=== PATIENT | male | born 1945 | race Caucasian/White ===

== ENCOUNTER → 2020-03-29 | Outpatient (CLI) | payer OTHER ==
[~2020-03-29] MED LIST: AMLO-150 PO; ASPI81TA45 PO; ATOR40TA78 PO; BROM5DRO3 EACHEYE; CHOL10003 PO; HYDROCHLOROTH12.5 MG PO; LOSA50TA14 PO; METO25TA35 PO
[2020-03-29 12:47] LABS: BASOPHILS % (AUTO) 1 % (0-1); EOSINOPHILS % (AUTO) 2 % (1-7); LYMPHOCYTES % (AUTO) 23 % (22-44); MEAN CORPUSCULAR HEMOGLOBIN 30.5 pg (27.5-34.5); MEAN CORPUSCULAR HGB CONC 32.9 g/dL (33.2-36.2); MONOCYTES % (AUTO) 6 % (2-9); NEUTROPHILS % (AUTO) 68 % (42-75); PLATELET COUNT 159 x10^3/uL (130-400); RED BLOOD COUNT 4.86 x10^6/uL (4.38-5.82); RED CELL DISTRIBUTION WIDTH 14.2 % (9.4-14.8)
[2020-03-29 12:53] LABS: INTERNATIONAL NORMALIZED RATIO 1.05 (0.93-1.1); PROTHROMBIN TIME 10.8 Seconds (9.6-11.5)
[2020-03-29 12:59] LABS: ALBUMIN 3.9 g/dL (3.4-5.0); ANION GAP 6 mmol/L (5-15); CHLORIDE 111 mmol/L (98-107)
[2020-03-29 13:02] LABS: ALANINE AMINOTRANSFERASE 21 U/L (12-78); ALKALINE PHOSPHATASE 66 U/L (45-117); BILIRUBIN,TOTAL 1.1 mg/dL (0.2-1.0); TOTAL PROTEIN 7.7 g/dL (6.4-8.2)
[2020-03-29 13:05] LABS: MD NO
== END | disposition home or self-care (01) ==
LOC: STAR 11:12
PROVIDERS: ATTEND Orthopaedic Surgery
DX: Z01.812 Encounter for preprocedural laboratory examination (principal); Z20.828 Contact with and (suspected) exposure to other viral communicable diseases; M16.12 Unilateral primary osteoarthritis, left hip; R94.31 Abnormal electrocardiogram [ECG] [EKG]
CPT/HCPCS: 36415; 80053; 83036; 85025; 85610; 85730; 87081; 87635; 93005

== ENCOUNTER 2020-04-03 06:45 | Observation (INO) | payer OTHER ==
[~2020-04-03] VITALS: Ht 177.8 cm; Wt 73.3 kg
[~2020-04-03 06:45] MED LIST changes: +BISACODYL 10 MG SUPP PR PRN; +CEFAZOLIN PMX 2GM/50ML 50 ML IVPB SCH; +DIPHENHYDRAMINE 50 MG CAPSULE PO PRN; +EPINEPHRINE 1 MG/ML, 1ML ONE; +HYDROcodone/APAP 5/325 TABLET PO PRN; +KETOROLAC 60 MG/2 ML ONE; +MAGNESIUM HYDROXIDE 8%, 30ML UDC PO PRN; +ONDANSETRON 2MG/ML, 2ML IV PRN; +ONDANSETRON 4 MG TABLET PO PRN; +OXYcodone IR 5MG TABLET PO PRN; +ROPIvacaine/PF 0.5%, 20 ML ONE; +ROPIvacaine/PF 0.5%, 30 ML ONE; +SENNA/DOCUSATE TABLET PO PRN; +SODIUM CHLORIDE 0.9% 50 ML ONE; +TRANEXAMIC ACID 100 MG/ML, 10ML ONE; +VANCOMYCIN 1,000 MG ONE; +ZOLPIDEM 5MG TABLET PO PRN
[2020-04-03 07:25] VITALS: BP 166/87
[2020-04-03] MEDS ORDERED: CHLORHEXIDINE 15 ML UDC MM ONE (07:30)
[2020-04-03] MEDS ORDERED: GABAPENTIN 300 MG CAPSULE PO ONE (07:30)
[2020-04-03] MEDS ORDERED: ACETAMINOPHEN 500 MG TABLET PO ONE (07:30)
[2020-04-03] MEDS ORDERED: LACTATED RINGERS 1,000 ML IV SCH (07:30)
[2020-04-03] MEDS ORDERED: FENTANYL PF 100 MCG/2ML ONE (07:47)
[2020-04-03] MEDS ORDERED: MIDAZOLAM 1 MG/ML, 2ML ONE (07:47)
[2020-04-03] MEDS ORDERED: HYDROmorphone 1 MG/ML, 1ML INJ IVPush PRN (08:00)
[2020-04-03] MEDS ORDERED: FENTANYL PF 100 MCG/2ML IV PRN (08:00)
[2020-04-03] MEDS ORDERED: MEPERIDINE/PF 25MG/0.5ML IVPush PRN (08:00)
[2020-04-03] MEDS ORDERED: OXYcodone 5 MG/5 ML ORAL.SOL UDC PO PRN (08:00)
[2020-04-03] MEDS ORDERED: PROMETHAZINE 25 MG/ML, 1ML IVPush PRN (08:00)
[2020-04-03] MEDS ORDERED: HYDROcodone/APAP 7.5-325MG/15ML UDC PO PRN (08:00)
[2020-04-03] MEDS ORDERED: LIDOCAINE PF 2%, 5ML ONE (08:26)
[2020-04-03] MEDS ORDERED: SUCCINYLCHOLINE 20 MG/ML, 10ML ONE (08:26)
[2020-04-03] MEDS ORDERED: PROPOFOL 10 MG/ML, 20ML ONE (08:26)
[2020-04-03] MEDS ORDERED: ONDANSETRON 2MG/ML, 2ML ONE (08:26)
[2020-04-03] MEDS ORDERED: ROCURONIUM 10 MG/ML,10ML ONE (08:26)
[2020-04-03] MEDS ORDERED: EPHEDRINE 50 MG/ML, 1ML ONE (08:26)
[2020-04-03] MEDS ORDERED: DEXAMETHASONE 4 MG/ML, 1ML ONE (08:26)
[2020-04-03] MEDS ORDERED: HYDROcodone/APAP 7.5-325MG/15ML UDC ONE (10:07)
[2020-04-03] MEDS: AMLODIPINE 5 MG TABLET PO SCH (11:33)
[2020-04-03] MEDS: METOPROLOL TARTRATE 25 MG TAB PO SCH ×2 (11:33→21:27)
[2020-04-03] MEDS: DOCUSATE 100 MG CAPSULE PO SCH ×2 (11:33→21:26)
[2020-04-03] MEDS: LOSARTAN 50MG TABLET PO SCH ×2 (11:33→21:26)
[2020-04-03] MEDS: HYDROCHLOROTHIAZIDE 12.5 MG CAPSULE PO SCH (11:33)
[2020-04-03 13:53] VITALS: BP 129/74
[2020-04-03] MEDS: CEFAZOLIN PMX 2GM/50ML 50 ML IVPB SCH ×2 (14:31→23:41)
[2020-04-03] MEDS: NS + 20MEQ KCL 1,000 ML IV SCH (17:06)
[2020-04-03] MEDS: ASPIRIN 81 MG TABLET EC PO SCH (17:06)
[2020-04-03 20:37] VITALS: BP 128/69
[2020-04-03] MEDS ORDERED: ATORVASTATIN 40 MG TABLET PO SCH (21:00)
[2020-04-03] MEDS: ACETAMINOPHEN 650 MG/20.3 ML UDC PO PRN (21:27)
[2020-04-04 00:37] VITALS: BP 130/76
[2020-04-04] MEDS: NS + 20MEQ KCL 1,000 ML IV SCH (04:30)
[2020-04-04 05:06] VITALS: BP 114/66
[2020-04-04] MEDS ORDERED: DEXAMETHASONE 4 MG/ML, 1ML IVPush SCH (06:00)
[2020-04-04 07:43] VITALS: BP 133/74
[2020-04-04] MEDS: ASPIRIN 81 MG TABLET EC PO SCH (07:52)
[2020-04-04] MEDS: ACETAMINOPHEN 650 MG/20.3 ML UDC PO PRN (07:52)
[2020-04-04] MEDS ORDERED: TRAM50TA2 PO (09:18)
[2020-04-04] MEDS ORDERED: OXYC5TAB3 PO (09:19)
[2020-04-04] MEDS: LOSARTAN 50MG TABLET PO SCH (09:25)
[2020-04-04] MEDS: DOCUSATE 100 MG CAPSULE PO SCH (09:25)
[2020-04-04] MEDS: HYDROCHLOROTHIAZIDE 12.5 MG CAPSULE PO SCH (09:25)
[2020-04-04] MEDS: METOPROLOL TARTRATE 25 MG TAB PO SCH (09:26)
[2020-04-04] MEDS: AMLODIPINE 5 MG TABLET PO SCH (09:26)
== END 2020-04-04 12:39 | disposition home or self-care (01) ==
LOC: OUT 06:45 → 4NE 10:55 → OUT 19:46 → DCLOUNGE 04-04 12:25
PROVIDERS: ADMIT Orthopaedic Surgery; ATTEND Orthopaedic Surgery
DX: M16.12 Unilateral primary osteoarthritis, left hip (principal); I25.10 Atherosclerotic heart disease of native coronary artery without angina pectoris; I10 Essential (primary) hypertension; I25.2 Old myocardial infarction; Z88.0 Allergy status to penicillin; Z79.899 Other long term (current) drug therapy
CPT/HCPCS: 27130; 36415; 72170; 73501; 76000; 85014; 85018; 96361; 96365; 96366; 96375; 97161; 97165; C1713; C1776; G0378; J0171; J0330; J0690; J1100; J1885; J2250; J2405; J2704; J2795; J3010; J3370; J3480; J7120